=== PATIENT | female | born 1995 | race Caucasian/White ===

== ENCOUNTER 2017-12-30 17:44 | Inpatient (IN) | payer OTHER ==
[~2017-12-30] VITALS: Ht 154.9 cm; Wt 67.1 kg
[2017-12-30] MEDS ORDERED: IRON325 MG PO (18:20)
[2017-12-30] MEDS ORDERED: PRENATAL GUMMI1 EACH PO (18:21)
[2017-12-30] MEDS ORDERED: FOLIC ACID1 MG PO (18:21)
[2018-01-06] MEDS ORDERED: DOCUSATE SODIU100 MG PO (09:47)
[2018-01-06] MEDS ORDERED: KETO10TA2 PO (09:47)
[2018-01-06] MEDS ORDERED: Mylicon 125MG PO (09:47)
[2018-01-06] MEDS ORDERED: OXYC1TAB9 PO (09:47)
[2018-01-06] MEDS ORDERED: PREPLUS CA-FE1 EACH PO (09:47)
== END 2018-01-06 13:02 | disposition home or self-care (01) | DRG 766 ==
LOC: OBS/DEL 17:44 → LDR 12-31 07:13 → OB/GYN 12-31 07:13
PROVIDERS: Obstetrics & Gynecology
PROC: 3E033VJ Introduction of Other Hormone into Peripheral Vein, Percutaneous Approach (ICD-10-PCS; 2017-12-31)
PROC: 4A1HXCZ Monitoring of Products of Conception, Cardiac Rate, External Approach (ICD-10-PCS; 2018-01-03)
PROC: 10D00Z1 Extraction of Products of Conception, Low, Open Approach (ICD-10-PCS; principal; 2018-01-03 17:00)
DX: O61.1 Failed instrumental induction of labor (principal); Z37.0 Single live birth; O48.0 Post-term pregnancy; Z3A.40 40 weeks gestation of pregnancy